=== PATIENT | male | born 1980 | race Caucasian/White ===

== ENCOUNTER 2019-04-05 08:55 | Emergency (ER) | payer BC ==
[2019-04-05] MEDS ORDERED: NS 0.9% 1000 ML** 1,000 ML IV ONE (09:24)
[2019-04-05] MEDS ORDERED: Ketorolac INJ* 30 MG/ML 1 ML VIAL IV PUSH ONE (09:24)
[2019-04-05] MEDS ORDERED: Ondansetron INJ* 2 MG/ML VIAL IV ONE (09:25)
[2019-04-05] MEDS ORDERED: Morphine 4 MG/ML VIAL (1 ml) 4 MG/ML VIAL IV ONE (09:25)
--- NOTE | 2019-04-05 09:27 | ED ---
GI/ HPI - HPI Summary HPI Summary: Pt. is a 38 y.o male who presents to the ER for severe right sided groin and testicle pain. Pt. states he has been having issues with testicle pain for several weeks. Pt. was seen in and the ER on 03/24/19. At that time he had normal labs and ct scan other than left nephrolithiasis. Pt. states that pain has increased since last night. Denies fever, cp, sob, V/D/C, dysuria, hematuria. Sxs are moderate in severity. No current modifying factors. - History of Current Complaint Chief Complaint: EDUrogenitalProblems Time Seen by Provider: 04/05/19 09:05 Stated Complaint: TESTICULAR PAIN PER PT Hx Obtained From: Patient Pain Intensity: 8 - Allergy/Home Medications Allergies/Adverse Reactions: Allergies Allergy/AdvReac Type Severity Reaction Status Date / Time sulfamethoxazole Allergy Unknown Verified 04/05/19 09:59 [From ] Reaction Details trimethoprim [From ] Allergy Unknown Verified 04/05/19 09:59 Reaction Details PMH/Surg Hx/FS Hx/Imm Hx Previously Healthy: Yes Cardiovascular History: Denies: Hx Coronary Artery Disease, Hx Hypertension History: Reports: Hx Kidney Stones Sensory History: Denies: Hx Legally Blind Opthamlomology History: Denies: Hx Legally Blind - Surgical History Surgery Procedure, Year, and Place: right arm reattatchemnt about 20 years ago Infectious Disease History: No Infectious Disease History: Denies: Traveled Outside the [place] in Last 30 Days - Family History Known Family History: Positive: Cardiac Disease, Non-Contributory - Social History Occupation: Unemployed Lives: With Family Alcohol Use: Occasionally Substance Use Type: Reports: None Smoking Status (MU): Never Smoked Tobacco Review of Systems Constitutional: Negative Negative: Fever, Chills Cardiovascular: Negative Respiratory: Negative Positive: Abdominal Pain. Negative: Vomiting, Diarrhea, Nausea Positive: flank pain, other - right testicle pain . Negative: dysuria, discharge Skin: Negative Neurological: Negative All Other Systems Reviewed And Are Negative: Yes Physical Exam Triage Information Reviewed: Yes Vital Signs On Initial Exam: Initial Vitals Temp Pulse Resp BP Pulse Ox 98 F 76 18 112/79 98 04/05/19 08:56 04/05/19 08:56 04/05/19 08:56 04/05/19 08:56 04/05/19 08:56 Vital Signs Reviewed: Yes Appearance: Positive: Pain Distress - Pt. lying on bed, appears in pain but nontoxic. Skin: Positive: Warm, Dry Head/Face: Positive: Normal Head/Face Inspection Eyes: Positive: Normal, EOMI Neck: Positive: Supple Respiratory/Lung Sounds: Positive: Clear to Auscultation, Breath Sounds Present Cardiovascular: Positive: Normal, RRR Abdomen Description: Positive: Nontender, Soft, Other: - mild right CVA tenderness. Male Genital Exam: Positive: Other - Diffuse tenderness to the right testicle diffusely. No edema, erythema or lesions. Neurological: Positive: Normal, Reflexes Intact Psychiatric: Positive: Affect/Mood Appropriate Diagnostics - Vital Signs Vital Signs Temp Pulse Resp BP Pulse Ox 04/05/19 08:56 98 F 76 18 112/79 98 - Laboratory Result Diagrams: 04/05/19 09:35 04/05/19 09:35 Lab Statement: Any lab studies that have been ordered have been reviewed, and results considered in the medical decision making process. GIGU Course/Dx - Course Course Of Treatment: Patient presenting with significant right groin and right testicular pain. He is afebrile with stable vital signs. Differential includes vesicular formation cellulitis, inguinal hernia, urolithiasis. Patient had normal CT scan done last week. We'll obtain kidney ultrasound I refer hydronephrosis and testicular ultrasound. Patient was given IV fluids, morphine and Toradol. Blood work and urinalysis are unremarkable including normal WBC and negative CRP. Testicular ultrasound negative for acute findings other than small hydrocele, reading per radiology. Kidney ultrasound negative for acute findings. Patient reexamined and still in extreme pain. He was given a milligram of IV hydromorphone. Patient examined by Dr. Hale given pain level. Dr. Hale recommends repeat CT abd./pelvis to r/o incarcerated inguinal given his severe groin/testicle pain. CT scan negative for acute findings per radiology. Case discussed with urology, Dr. Mccarty, who recommend trying a course of doxy for possible atypical epidydimtitis. Discussed results with pt. Pt. currently dose not have a pcp and his is trying to get him an apt. wth her pcp. Attempted to discuss pt.'s hx of anxiety but pt. did not provide any hx. Will dc pt. home to f.u with urology. Naproxen for pain as directed. To return to ER if sxs change or worsen. - Diagnoses Differential Diagnoses - Male: Appendicitis, Balanitis, Epididymitis, Orchitis, Renal Colic, Ureteral Calculi, Urethritis Provider Diagnoses: Testicular pain, right Discharge ED - Sign-Out/Discharge Documenting (check all that apply): Patient Departure Patient Received Moderate/Deep Sedation with Procedure: No - Discharge Plan Condition: Good Disposition: HOME Prescriptions: DOXYcycline CAP(*) [DOXYcycline 100MG CAP(*)] 100 mg PO BID #20 cap Naproxen [Naproxen 500 mg tab] 500 mg PO BID #20 tablet traMADol TAB* [Ultram*] 50 mg PO Q12H PRN #12 tab MDD 100 mg PRN Reason: Pain - Severe Patient Education Materials: Acute Abdominal Pain (ED), Testicle Pain (ED) Referrals: [facility] [Outside] Kali Mccarty MD [Medical Doctor] - Additional Instructions: Schedule an appointment with the [facility] for Monday Follow up with urology as scheduled Continue motrin for pain as directed Return to ER if symptoms change or worsen - Billing Disposition and Condition Condition: GOOD Disposition: Home - Attestation Statements Provider Attestation: Patient was presented to me by the LENA. He has had right-sided flank pain for the past couple weeks and now rates into his groin and testicle. Patient had a negative UA here. Patient had an ultrasound that showed a hydrocele on the right but no other abnormality. Patient was worked up recently in the emergency department with a negative CT scan. Upon my evaluation, patient has had right-sided flank pain that rates into his testicle. Patient was in obvious pain upon my examination. Patient had no rash or CVA tenderness. Patient had mild testicular tenderness. Patient was tender in his right inguinal canal with no obvious hernia palpated. Patient has had constipation recently. Given the fact, patient is in severe pain and possibly with a string that it hernia, I thought we should get a CT scan. Patient's CT scan was unremarkable. Urology was called by LENA who does not think we are missing any emergent pathology. Patient was discharged with tramadol
[2019-04-05 10:08] LABS: ABS Eosinophils 0.1 10^3/ul (0-0.6); ABS Lymphocytes 1.6 10^3/ul (1.0-4.8); ABS Monocytes 0.6 10^3/ul (0-0.8); ABS Neutrophils 3.3 10^3/ul (1.5-7.7); Eosinophil % 1.2 %; Hematocrit 43 % (42-52); Hemoglobin 15.1 g/dL (14.0-18.0); Mean Corpuscular HGB Conc 35 g/dL (31-36); Mean Corpuscular Hemoglobin 33 pg (27-31); Mean Corpuscular Volume 95 fL (80-94); Mean Platelet Volume 7.9 fL (7.4-10.4); Platelet Count 229 10^3/uL (150-450); Red Blood Count 4.56 10^6 /uL (4.18-5.48); Red Cell Distribution Width 13 % (10-15); White Blood Count 5.6 10^3/uL (3.5-10.8)
[2019-04-05 10:11] LABS: Urine Appearance Clear; Urine Bilirubin Negative (Negative); Urine Blood Negative (Negative); Urine Color Straw; Urine Glucose Negative (Negative); Urine Ketones Negative (Negative); Urine Nitrite Negative (Negative); Urine Protein Negative (Negative); Urine Specific Gravity 1.005 (1.010-1.030); Urine Urobilinogen Negative (Negative)
[2019-04-05 10:18] LABS: ALT 17 U/L (7-52); AST 19 U/L (13-39); Albumin 4.5 g/dL (3.2-5.2); Albumin/Globulin Ratio 1.8 (1-3); Alkaline Phosphatase 38 U/L (34-104); Anion Gap 6 mmol/L (2-11); BUN/Creatinine Ratio 12.9 (8-20); Blood Urea Nitrogen 11 mg/dL (6-24); C Reactive Protein < 1.00 mg/L (<8.01); CO2 Carbon Dioxide 27 mmol/L (22-32); Calcium 9.8 mg/dL (8.6-10.3); Chloride 106 mmol/L (101-111); EGFR African American 120.8 (>60); EGFR Non-African American 99.8 (>60); Globulin 2.5 g/dL (2-4); Glucose 89 mg/dL (70-100); Potassium 3.9 mmol/L (3.5-5.0); Sodium 139 mmol/L (135-145)
[2019-04-05] MEDS ORDERED: Iohexol 300* (CONTRAST) 10 ML SDV IV ONE (12:39)
[2019-04-05] MEDS ORDERED: HYDROmorphone INJ1* 1 MG/ML SYRINGE IV ONE (12:47)
[2019-04-05 14:23] VITALS: BP 106/66
== END 2019-04-05 15:02 | disposition home or self-care (01) ==
LOC: ED 08:55
DX: N50.811 Right testicular pain (principal); N20.0 Calculus of kidney; N43.3 Hydrocele, unspecified; Z79.899 Other long term (current) drug therapy; Z88.1 Allergy status to other antibiotic agents; Z88.2 Allergy status to sulfonamides
CPT/HCPCS: 36415; 74177; 76775; 76870; 80053; 81003; 85025; 86140; 96374; 96375; 99283; J1170; J1885; J2270; J2405; Q9967